=== PATIENT | female | born 1980 | race Caucasian/White ===

== ENCOUNTER 2017-07-08 09:33 | Emergency (ER) | payer OTHER ==
[~2017-07-08] VITALS: Ht 154.9 cm; Wt 88.5 kg
[~2017-07-08 09:33] MED LIST: FLOMAX PO; NAPROSYN500 MG PO; NORCO 5-325 TA1 EACH PO; PERCOCET 5-3251 EACH PO; TAMSULOSIN HCL0.4 MG PO; ZOFRAN 4 MG ORAL4 M1 DIS
[2017-07-08] MEDS ORDERED: BIRTH CONTROL PILL (09:44)
[2017-07-08] MEDS ORDERED: LOMAIRA8 MG PO (09:44)
[2017-07-08 10:31] LABS: ABSOLUTE BASOPHILS 0.1 thou/uL (0.0-0.2); ABSOLUTE EOSINOPHILS 0.4 thou/uL (0.0-0.7); ABSOLUTE LYMPHOCYTES 2.7 thou/uL (0.8-5.3); ABSOLUTE MONOCYTES 0.6 thou/uL (0.0-1.2); ABSOLUTE NEUTROPHILS 5.1 thou/uL (1.6-8.1); BASOPHILS 0.7 %; EOSINOPHILS 4.3 %; HEMATOCRIT 42.9 % (37.0-47.0); HEMOGLOBIN 14.8 gm/dL (12.0-15.0); LYMPHOCYTES 30.6 %; MCH 29.9 pg (26.0-34.0); MCHC 34.6 g/dL (28.0-37.0); MCV 86.5 fL (80.0-100.0); MONOCYTES 6.3 %; MPV 9.2 fl. (7.2-11.1); NUCLEATED RBCS 0 /100WBC; PLATELET COUNT* 262 thou/uL (150-400); POLYS 58.1 %; RBC 4.96 mil/uL (4.20-5.00); RDW-CV 13.1 % (10.5-14.5); WBC 8.7 thou/uL (4.0-11.0)
[2017-07-08 10:33] LABS: CALCIUM 9.8 mg/dL (8.5-10.1); CREATININE 0.9 mg/dL (0.6-1.3); POTASSIUM 3.7 mmol/L (3.5-5.1)
[2017-07-08 10:47] LABS: ALBUMIN 3.9 g/dL (3.4-5.0); TOTAL BILIRUBIN 0.3 mg/dL (<0.1-1.0); TOTAL PROTEIN 8.2 g/dL (6.4-8.2)
[2017-07-08] MEDS ORDERED: ULTRAM 50MG TAB50 MG PO (11:25)
[2017-07-08 11:36] VITALS: BP 135/78
== END 2017-07-08 11:37 | disposition home or self-care (01) ==
LOC: M.ERS 09:33
PROVIDERS: Family Medicine
DX: K59.00 Constipation, unspecified (principal); N20.0 Calculus of kidney; F17.210 Nicotine dependence, cigarettes, uncomplicated; Z87.442 Personal history of urinary calculi

== ENCOUNTER → 2018-08-30 | Day surgery (SDC) | payer OTHER ==
[~2018-08-30] MED LIST changes: +BIRTH CONTROL PILL; +LOESTRIN1 EACH PO; +LOMAIRA8 MG PO; +PHENTERMINE H37.5 MG PO; +PROTONIX 20 MG20 M1 PO; +PROTONIX40 M1 PO; +ULTRAM 50MG TAB50 MG PO; +UROCIT-K10 ME1 PO
--- NOTE | ~2018-08-30 | OP ---
[address] [address] OPERATIVE REPORT Name: CEM BORGES Room: [facility]#: [id number] Admission: 08/30/18 Attend Phys: Mark Anthony Ambrose DO Discharge: Date of : 76 Report #: [id number] THIS REPORT FOR: //name// CC: Mark Anthony Wells REFERRING PHYSICIAN: Lawson Wells DO. PREOPERATIVE DIAGNOSIS: Symptomatic cholelithiasis. POSTOPERATIVE DIAGNOSES: Symptomatic cholelithiasis, plus mass in the distal stomach. PROCEDURE: Da Yakelin robotic assisted multiport laparoscopic cholecystectomy with Firefly technology. SURGEON: Mark Anthony Ambrose DO. [employer]P [place]: Riley Kumari. SECOND DRIVER WHEELCHAIR: Dr. Stacie Jorge. ANESTHESIA: General endotracheal. ESTIMATED BLOOD LOSS: Less than 20 mL. COMPLICATIONS: None. DESCRIPTION OF PROCEDURE: After obtaining proper consents and discussing risks and complications with the patient, she was taken to the operating room, laid in a supine position, administered general anesthesia. She was then prepped and draped in the usual fashion. A timeout was performed. We confirmed the appropriate patient and procedure. Preoperative antibiotics were given. SCDs were in place. We then made a small supraumbilical skin incision with a #11 scalpel blade, carried down through the skin into the subcutaneous tissue using electrocautery for hemostasis. Once the fascia was encountered, it was incised along the midline, grasped and elevated with Rachell clamps and divided further. The peritoneum was then bluntly opened using a hemostat. A finger was placed inside the peritoneal cavity to assure that there were no franklyn-incisional adhesions. Next, 2-0 Vicryl sutures were placed in a [id number] fashion to secure the da Yakelin camera port, which was then inserted. Once the camera port was inserted, insufflation was begun. Once insufflation was complete, full visual inspection of the anterior abdominal organs was performed. This revealed a dilated, thick walled appearing gallbladder. There was also noted to be a whitish mass just proximal to the pylorus and the stomach. This appeared to be on the greater curvature of the stomach. [place] [id number] OPERATIVE REPORT Name: CEM BORGES Room: [facility]#: [id number] Admission: 08/30/18 Attend Phys: Mark Anthony Ambrose, Discharge: Date of : 76 Report #: [id number] our robotic ports, one was placed in the left upper quadrant, 2 in the right upper quadrant. We then docked the da Yakelin robot. Once da Yakelin robot was docked, I inserted a hook cautery in the left upper quadrant and then 2 Cadiere graspers in the right upper quadrant. I then broke, scrub and went on console. Once on console, I moved the camera over towards the distal stomach and palpated the mass that was there. It appeared to be approximately 2 x 1.5 cm just proximal to the vein of Gillespie which cotton the pylorus and it appeared to be closer to the greater curvature of the stomach than not. This appeared to be intraluminal in the stomach. We had placed an orogastric tube prior to placing our trocars, and the stomach was decompressed, and this mass was still present. At this point, since we had not consented the patient for any further procedure there, we elected to just photograph that and then move on to taking out the gallbladder. I used the Cadiere grasper in arm 3 to grasp and elevate the gallbladder, and then, we were able to identify Britni pouch. Using immunofluorescence with Firefly technology, I was able to identify the cystic duct, common hepatic duct and common bile duct before any dissection was performed. Photographs were taken of that as well. I then dissected the hepatoduodenal ligament free until I was able to visualize the cystic duct and cystic artery as they coursed directly into the gallbladder. The cystic duct and cystic artery were completely dissected free. We obtained a critical view of safety including the cystic duct, common hepatic duct, common bile duct and cystic artery. I also confirmed this using Firefly technology again. We then clipped the cystic duct and cystic artery proximally and distally and then divided them between clips. The gallbladder was then removed from the liver bed using electrocautery. Once this was complete, the cystic duct and cystic artery stumps were checked for any leak or bleeding, as was the liver bed. We also used Firefly again to assure there was no biliary leaking from the cystic duct or from the liver bed. Finding none, I then had my assistant womens volleyball coach undock arm 4 and reaching and grasped the gallbladder with a Cadiere grasper. I then rescrubbed and went back to the patient's bedside. We undocked the remaining arms of the robot and removed all of the instruments, trocars were removed under direct vision. Prior to that, the gallbladder was placed into an Endopouch. The gallbladder was then removed through the umbilical incision. We did have to enlarge the fascial opening because of the large gallstone. The umbilical fascia was then closed using the 2 previously placed 0 Vicryl sutures plus 2 additional 0 Vicryl suture. Skin incisions were all closed using 4-0 Monocryl subcuticular stitches. Mastisol, Steri-Strips, sterile OpSite and pressure dressings were placed. The patient was awakened in the operating room and transported to recovery room in stable condition. Sponge, needle and instrument counts were all correct at the end of the procedure. I did discuss the case with Dr. Jessica Munoz following the surgery, and we will refer the patient for endoscopic evaluation of the distal gastric mass. [place] [address] OPERATIVE REPORT Name: GENEVA BORGESN Avni Room: [facility]#: [id number] Admission: 08/30/18 Attend Phys: Mark Anthony Ambrose DO Discharge: Date of : 76 Report #: [id number] about that. We will arrange for her to follow up with Dr. Munoz in a short period of time. By: [id number] Ambrose DO /nt
[2018-08-30 08:57] LABS: HEMATOCRIT 43.1 % (37.0-47.0); HEMOGLOBIN 14.9 gm/dL (12.0-15.0)
--- NOTE | 2018-09-01 12:05 | PATH ---
[facility] [address] [place] [address] PATHOLOGY RPT PROCEDURE Name: MAME KAPOOR Room: [facility].#: [id number] Admission: 08/30/18 Date of : 76 Discharge: Report #: [id number] Path Case #: [id number] [facility] Accession Number: [id number] . 01 Material submitted: . GALLBLADDER . 01 Clinical history: . Cholelithiasis, cholecystitis . 02 Diagnosis: Gallbladder: - Chronic cholecystitis and cholelithiasis. (BRO/db; 08/31/2018) LBQ/08/31/2018 . 02 Electronically signed: . Jd Gaines MD, Pathologist NPI- [id number] . 01 Gross description: . The specimen is received in formalin, labeled "Mame Kapoor, gallbladder", is an intact, distended L shaped gallbladder measuring 11.0 x 2.7 x 2.4 cm. The serosa is glistening, smooth and green-barraza. The lumen is filled with yellow-green viscous bile admixed with an oval green-brown calculus measuring 4.0 x 1.8 x 1.6 cm. The mucosa is green, granular with focal effaced areas. The wall has an average thickness of 0.1 cm. No discrete masses are identified. Nurses Educator tissue is submitted in A1. ([facility]; 08/30/2018) SHS/SHS . 02 Pathologist provided ICD-10: K80.10 . 02 CPT . 896636 Specimen Comment: A courtesy copy of this report has been sent to Specimen Comment: [phone], . Specimen Comment: Report sent to / DR DESIR Specimen Comment: A duplicate report has been generated due to demographic updates. Performed at: [address] [id number] MD Marshall Oliva MD Phone: [phone] Performed at: 02 [facility] [address] [place], [place] [id number] [address] [address] PATHOLOGY RPT PROCEDURE Name: MAME KAPOOR Room: [facility]#: [id number] Admission: 08/30/18 Date of : 76 Discharge: Report #: [id number] Path Case #: [id number] MD Jd Gaines MD Phone: [phone]
== END | disposition home or self-care (01) ==
LOC: M.SUR 07:20
PROVIDERS: Surgery
DX: K80.10 Calculus of gallbladder with chronic cholecystitis without obstruction (principal); R19.09 Other intra-abdominal and pelvic swelling, mass and lump; Z88.8 Allergy status to other drugs, medicaments and biological substances; Z79.899 Other long term (current) drug therapy

== ENCOUNTER → 2018-09-07 | Outpatient (CLI) | payer OTHER | LOC: M.LAB 04:37 | DX: E87.6 Hypokalemia (principal); D64.9 Anemia, unspecified ==